=== PATIENT | female | born 1965 | race Caucasian/White ===

== ENCOUNTER → 2017-07-31 12:06 | Outpatient (CLI) | payer MEDICARE, SELFPAY ==
[2016-10-13 09:16] VITALS: BMI 35.9
[2016-10-13 10:53] VITALS: BP 107/60
== END ==
PROVIDERS: Visit Provider Nurse Practitioner Adult Health
DX: R82.99 Other abnormal findings in urine (principal)
CPT/HCPCS: 87077; 87086; 87088; 87186

== ENCOUNTER 2017-08-24 14:17 | Day surgery (SDC) | payer MEDICARE, SELFPAY ==
[2017-08-24] VITALS (7 sets, daily range): BP systolic 99–120; BP diastolic 66–74; PULSE 58–70; RESP 14–16; TEMP 36.4–37.1; O2SAT 96–98; BMI 35.7
[2017-08-24] MEDS: Cefazolin 2 GM in 0.9% Normal Saline 100 ML IV (16:31)
--- NOTE | 2017-08-24 16:33 | PCM.DC.URO ---
Discharge Diet: No Restrictions Discharge Activity: Return to Normal Activity, May Not Drive - for 2 days. Allergies/Adverse Reactions: Allergies OAT STRAW Allergy (Uncoded 08/17/17 08:54) Shortness of breath Medications to take at Discharge Albuterol IH (ProAir) [Proair Hfa (SP)Vent Pts] 1 - 2 puff INHALATION Q4H PRN PRN 10/06/16 Estradiol [Estrace] 2 mg PO QHS 10/06/16 Oxybutynin [Ditropan] 15 mg PO BID 10/06/16 Triamcinolone Acetonide [Nasacort Aq Nasal [place]] 1 spray NASAL PRN PRN 08/17/17 Ciprofloxacin [Cipro] 250 mg PO BID #14 tab 08/24/17 The following prescriptions were given: Ciprofloxacin [Cipro] 250 mg PO BID #14 tab Primary Care Physician: Pernell Zavala MD [Primary Care Provider] - Please Follow Up With: Ashish Rouse MD When: please call to make an appointment.- 1 month.
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
== END 2017-08-24 18:12 | disposition home or self-care (01) ==
LOC: SDC 14:18 → AC 14:21
PROVIDERS: Family Provider Family Medicine; PCP Family Medicine; Visit Provider Urology
PROC: 3E0K8GC Introduction of Other Therapeutic Substance into Genitourinary Tract, Via Natural or Artificial Opening Endoscopic (ICD-10-PCS; CPT 52287; principal; 2017-08-24 12:55)
DX: N39.41 Urge incontinence (principal); N32.81 Overactive bladder; R35.0 Frequency of micturition; Z87.820 Personal history of traumatic brain injury; Z79.899 Other long term (current) drug therapy
CPT/HCPCS: 52287; J3010; J7120; J0585; J2405; J3490

== ENCOUNTER → 2017-10-06 10:02 | Outpatient (CLI) | payer MEDICARE, SELFPAY ==
--- NOTE | 2017-10-06 10:15 | RAD_ITS ---
STUDY: X-RAY - LEFT ANKLE REASON FOR EXAM: Female, 51 years old. Pain TECHNIQUE: 3 view(s) of the ankle. COMPARISON: None. FINDINGS: Normal visualized distal tibia and fibula. Normal medial and lateral malleoli. Normal tibiotalar articulation and ankle mortise. Normal visualized talus. Small calcaneal spurs The visualized subtalar, talonavicular, calcaneocuboid and tarsal articulations are normal. The soft tissue structures are unremarkable. RAD/Ankle min 3 Views IMPRESSION: Calcaneal spurs, no demonstrated fracture or aggressive osseous lesion Electronically Signed: Zelalem Kingsley MD at 18:48 EDT , Service support ,
--- NOTE | 2017-10-06 10:15 | RAD_ITS ---
STUDY: X-RAY - LEFT FOOT CLINICAL: Female, 51 years old. Pain TECHNIQUE: 3 view(s) of the foot. COMPARISON: None. FINDINGS: Normal talus and tarsal bones. Calcaneal spurs Normal visualized subtalar, talonavicular, calcaneocuboid, tarsal and tarsometatarsal articulations. Normal metatarsi. Normal metatarsophalangeal joint of the great toe. Normal tibial and fibular sesamoid bones. Normal interphalangeal joint of the great toe. Normal phalanges of the great toe. Normal second through fifth metatarsophalangeal joints. Normal interphalangeal joints and phalanges of the lesser toes. The soft tissue structures are unremarkable. RAD/Foot min 3 Views IMPRESSION: Calcaneal spurs, otherwise unremarkable foot Electronically Signed: Zelalem Kingslye MD at 18:48 EDT , Service support ,
== END ==
PROVIDERS: Family Provider Family Medicine; PCP Family Medicine; Visit Provider Family Medicine
DX: S86.112A Strain of other muscle(s) and tendon(s) of posterior muscle group at lower leg level, left leg, initial encounter (principal); M21.40 Flat foot [pes planus] (acquired), unspecified foot; M77.32 Calcaneal spur, left foot
CPT/HCPCS: 73610; 73630

== ENCOUNTER 2017-11-15 19:58 | Emergency (ER) | payer MEDICARE, SELFPAY ==
[2017-11-15 19:59] VITALS: BP 134/70; PULSE 96; RESP 18; TEMP 36.8; O2SAT 98; BMI 34.5
--- NOTE | 2017-11-15 20:30 | RAD_ITS ---
STUDY: X-RAY - RIGHT FOOT CLINICAL: Female, 51 years old. Foot swelling and pain TECHNIQUE: 3 view(s) of the foot. COMPARISON: None. FINDINGS: Normal talus, calcaneus, and tarsal bones. Normal visualized subtalar, talonavicular, calcaneocuboid, tarsal and tarsometatarsal articulations. Normal metatarsi. Normal metatarsophalangeal joint of the great toe. Normal tibial and fibular sesamoid bones. Normal interphalangeal joint of the great toe. Normal phalanges of the great toe. Normal second through fifth metatarsophalangeal joints. Normal interphalangeal joints and phalanges of the lesser toes. The soft tissue structures are unremarkable. There is no demonstrated fracture. RAD/Foot min 3 Views IMPRESSION: Normal x-ray examination of the foot. Electronically Signed: Thomas Harry MD at 20:58 EDT , Service support ,
[2017-11-15] MEDS: HYDROcodone Bitartrate/Apap 5/325 Tablet PO (21:30)
--- NOTE | 2017-11-15 22:11 | ED.VISSUMM ---
- ER Visit Summary Date of Service: 11/15/17 Chief Complaint: Right foot pain History of Present Illness: The patient is a 51 F who presents with right foot pain that became worse today while standing and using a weed eater. Patient states the pain is worse over the medial aspect of the right foot. Patient admits to some swelling over this area. Patient denies any trauma or injury. Patient states her pain is constant aching and throbbing but sharp at times. Patient states her pain is worse with weightbearing. Patient denies any paresthesias or weakness. Patient states she does have a history of plantar fasciitis. Physical Examination: Vital signs are stable. Patient is afebrile. Patient is in no acute distress. Musculoskeletal exam reveals tenderness and mild edema over the medial and plantar aspect of the right foot. There is no bony crepitance or step-off noted. Range of motion was limited in all motions of the right foot secondary to pain. Sensation was intact to light touch in all digits. Capillary refill is less than 2 seconds in all digits. The remaining physical exam is within normal limits. Test Results: X-rays of the right foot were obtained. There is no acute fracture noted. Emergency Department Course and Treatment: Patient was given a dose of [place] here. Patient was instructed to ice and elevate the right foot and ankle. Patient was instructed to continue wearing her brace. Patient was given a prescription for Naprosyn. Patient was instructed to follow-up with her primary care physician in 7-10 days. Patient understood and was agreeable with the plan. All questions were answered. Disposition: Discharged home Impression: Right foot strain This note was generated with [employer] dictation software. It may contain incorrect words, spelling, and punctuation that were not noted in review of the chart prior to signing ED Disposition - Plan for ED Patient: Disposition: Home or Assisted Living Chief Complaint: Lower Extremity Injury Diagnosis: Strain of right foot Instructions: ED Sprain Foot Prescriptions: Naproxen [Naprosyn] 500 mg PO BID PRN PRN #20 tab PRN Reason: Pain Referrals: Pernell Zavala MD [Primary Care Provider] -
[2017-11-15 22:28] VITALS: BP 129/70; PULSE 74; RESP 16; O2SAT 98
--- NOTE | 2017-11-15 22:29 | ED.DCSUM_ITS ---
- ER Visit Summary Date of Service: 11/15/17 Chief Complaint: Right foot pain History of Present Illness: The patient is a 51 F who presents with right foot pain that became worse today while standing and using a weed eater. Patient states the pain is worse over the medial aspect of the right foot. Patient admits to some swelling over this area. Patient denies any trauma or injury. Patient states her pain is constant aching and throbbing but sharp at times. Patient states her pain is worse with weightbearing. Patient denies any paresthesias or weakness. Patient states she does have a history of plantar fasciitis. Physical Examination: Vital signs are stable. Patient is afebrile. Patient is in no acute distress. Musculoskeletal exam reveals tenderness and mild edema over the medial and plantar aspect of the right foot. There is no bony crepitance or step-off noted. Range of motion was limited in all motions of the right foot secondary to pain. Sensation was intact to light touch in all digits. Capillary refill is less than 2 seconds in all digits. The remaining physical exam is within normal limits. Test Results: X-rays of the right foot were obtained. There is no acute fracture noted. Emergency Department Course and Treatment: Patient was given a dose of [place] here. Patient was instructed to ice and elevate the right foot and ankle. Patient was instructed to continue wearing her brace. Patient was given a prescription for Naprosyn. Patient was instructed to follow-up with her primary care physician in 7-10 days. Patient understood and was agreeable with the plan. All questions were answered. Disposition: Discharged home Impression: Right foot strain This note was generated with [employer] dictation software. It may contain incorrect words, spelling, and punctuation that were not noted in review of the chart prior to signing ED Disposition - Plan for ED Patient: Disposition: Home or Assisted Living Chief Complaint: Lower Extremity Injury Diagnosis: Strain of right foot Instructions: ED Sprain Foot Prescriptions: Naproxen [Naprosyn] 500 mg PO BID PRN PRN #20 tab PRN Reason: Pain Referrals: Pernell Zavala MD [Primary Care Provider] -
== END 2017-11-15 22:29 | disposition home or self-care (01) ==
PROVIDERS: Emergency Provider Emergency Medicine; Family Provider Family Medicine; PCP Family Medicine
DX: S93.601A Unspecified sprain of right foot, initial encounter (principal); X58.XXXA Exposure to other specified factors, initial encounter; Y93.9 Activity, unspecified; Y92.9 Unspecified place or not applicable
CPT/HCPCS: 73630; 99282

== ENCOUNTER 2017-11-22 17:30 | Outpatient (RCR) | payer MEDICARE, SELFPAY ==
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
--- NOTE | 2017-11-22 18:13 | HP.PTDCSUM ---
HP - PT D/C Summary It has been my pleasure to treat RUBINA DIXON under orders from Chito Frederick, for the diagnosis of L ankle pain for a total of 8 visit(s). Discharge Date: Please see the following information for a summary of their discharge status. - Subjective Subjective: Pt reports she has made a very little improvement overall - Pain L ankle Pain Intensity (Out of 10): 5 - Overall Improvement % Improvement: 10 - Objective Objective/Function: L ankle pain still 5-6/10. L ankle DF ROM= 15 degrees. Pt is I with HEP. MMT: DF and Ever 5/5, PF and INV= 3/5 and very painful with testing. Rx goals not fully achieved - Goals Goal 1:: Decrease L ankle pain x 50% to aid with sleep Goal Progress: Not Progressing Goal 2:: Increase L ankle strength x 1 grade to aid with IADL's Goal Progress: Not Progressing Goal 3:: Increase L ankle DF ROM x 5-10 degrees to aid with decreasing pain Goal Progress: Goal Met Goal 4:: I with HEP Goal Progress: Goal Met - Plan Plan: Discontinue and RTD - D/C Information If there are questions or concerns regarding this patient's physical therapy, please feel free to call me at [phone]. Thank you for the referral of this patient. Sincerely, Harley Saldana, PT,
== END 2017-11-22 19:00 | disposition home or self-care (01) ==
LOC: PT 17:30
PROVIDERS: Family Provider Family Medicine; PCP Family Medicine; Visit Provider Family Medicine
DX: M25.572 Pain in left ankle and joints of left foot (principal)
CPT/HCPCS: 97035; 97110; 97161; 97530

== ENCOUNTER 2017-12-31 21:13 | Emergency (ER) | payer MEDICARE, SELFPAY ==
[2017-12-31 21:14] VITALS: BP 124/76; PULSE 86; RESP 18; TEMP 36.7; O2SAT 93; BMI 34.4
[2017-12-31 21:20] VITALS: O2SAT 93
--- NOTE | 2017-12-31 22:00 | RAD_ITS ---
STUDY: X-RAY CHEST REASON FOR EXAM: Female, 52 years old. Cough TECHNIQUE: Frontal and lateral views of the chest. COMPARISON: None. FINDINGS: The lungs are clear and expanded. There is no demonstrated pleural abnormality. Normal size heart. Normal mediastinum and darren. Normal visualized pulmonary arteries. Normal visualized aortic arch and descending thoracic aorta. There is demineralization of the osseous structures. There is degenerative osteoarthritis of the bilateral shoulders. There is no demonstrated abnormality of the visualized soft tissue structures of the upper abdomen. RAD/Chest PA and Lateral IMPRESSION: Degenerative changes, as described above. No demonstrated acute cardiopulmonary process. Electronically Signed: Baljeet Solorio MD at 22:23 EDT Tel , Service support ,
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
[2017-12-31 22:32] VITALS: PULSE 92; O2SAT 95
== END 2017-12-31 22:33 | disposition home or self-care (01) ==
PROVIDERS: Emergency Provider Emergency Medicine; Family Provider Family Medicine; PCP Family Medicine
DX: J04.0 Acute laryngitis (principal); E66.9 Obesity, unspecified; Z68.34 Body mass index [BMI] 34.0-34.9, adult; Z87.820 Personal history of traumatic brain injury; Z79.899 Other long term (current) drug therapy
CPT/HCPCS: 71046; 99282

== ENCOUNTER → 2018-04-02 16:43 | Outpatient (CLI) | payer MEDICARE, SELFPAY | PROVIDERS: Referring Provider Urology; Visit Provider Urology | DX: R82.998 Other abnormal findings in urine (principal) | CPT/HCPCS: 87086; 87088; 87186 ==

== ENCOUNTER 2018-05-03 06:45 | Day surgery (SDC) | payer MEDICARE, SELFPAY ==
[2018-05-03] VITALS (16 sets, daily range): BP systolic 85–118; BP diastolic 52–79; PULSE 48–74; RESP 14–18; TEMP 36.2–36.9; O2SAT 92–100; BMI 34.7
--- NOTE | 2018-05-03 07:42 | EKG12_ITS ---
Test Reason : PRE-OP Blood Pressure : / mmHG Vent. Rate : 068 BPM Atrial Rate : 068 BPM P-R Int : 164 ms QRS Dur : 096 ms QT Int : 410 ms P-R-T Axes : 052 097 019 degrees QTc Int : 435 ms Normal sinus rhythm Normal ECG When compared with ECG of 04-OCT-2016 00:18, No significant change was found Confirmed by NICHELLE HERRERA ([id number]), editorial writer REJI ROMERO ([id number]) on 05/06/2018 2:51:54 PM Referred By: Ashish Rouse Confirmed By:NICHELLE HERRERA
[2018-05-03] MEDS: Cefazolin 2 GM in 0.9% Normal Saline 100 ML IV (08:45)
[2018-05-03] MEDS: Lidocaine Jelly 2% 20 ML Syringe (URO-JET) 20 APPLIC (09:00)
--- NOTE | 2018-05-03 09:25 | DCINST_ITS ---
Discharge Diet: Light diet - advance as tolerated Discharge Activity: Return to Normal Activity Allergies/Adverse Reactions: Allergies OAT STRAW Allergy (Uncoded 05/03/18 07:14) Shortness of breath Medications to take at Discharge Estradiol [Estrace] 2 mg PO QHS 10/06/16 Oxybutynin [Ditropan] 15 mg PO BID 10/06/16 Albuterol Inhaler [Ventolin Hfa (SP)] 1 - 2 puff INHALATION Q4H PRN PRN 04/19/18 Cetirizine HCl [Zyrtec] 10 mg PO DAILY 04/19/18 Primary Care Physician: Pernell Zavala MD [Primary Care Provider] - Test Results: Test results from this visit will be discussed in further detail at your follow- up appointment, if applicable. Please Follow Up With: Ashish Rouse MD When: in 2 weeks, please call to make an appointment.
--- NOTE | 2018-05-03 09:26 | PCM.OPRPT ---
Report of Operation Date of Procedure: 05/03/18 Pre-Operative Diagnosis: Mixed incontinence with both stress incontinence and urge incontinence Post-Operative Diagnosis: Same Surgery/Procedure Performed:: Cystoscopy with injection of Botox into her bladder 150 units, and injection of Macroplastique into the urethra for stress incontinence. Description of Surgical Findings:: 52-year-old female taken back to the operating room at the smooth induction of anesthesia she was placed supine on the table and then in dorsal lithotomy position, the urethra and vaginal area were prepped and draped in usual sterile fashion, went into the bladder with a 21 [place] rigid cystourethroscope and the Botox was prepared I prepared 150 units of Botox in the back table I then injected in aliquots of half cc into the back of the bladder a total of about 20 sites in the back of the bladder, after injecting the the bladder with 150 units of Botox I then switched over the MAC plus needle prepared the Macroplastique solution for injection into the urethra the first injection was done at 6 o'clock position at the urethra infiltrated the urethra with the needle advanced the needle into the urethra make sure the beveled tip was down and then infiltrated the Macroplastique material into the urethra, I then pulled back out and then made a second injection at the 3 o'clock position and another injection in the 9 o'clock position after the injection and Macroplastique the urethra was accomplished and I drain the bladder patient anesthetic was reversed taken back to PACU in good condition. Type of Anesthesia:: General Drains: none - Admit VTE Documentation VTE Present on Admission: No VTE Mechan Device Prophylaxis: SCD's
--- NOTE | 2018-05-03 09:38 | EKG12_ITS ---
Test Reason : POST-OP Blood Pressure : / mmHG Vent. Rate : 047 BPM Atrial Rate : 047 BPM P-R Int : 184 ms QRS Dur : 084 ms QT Int : 462 ms P-R-T Axes : 049 090 047 degrees QTc Int : 408 ms Sinus bradycardia Nonspecific ST abnormality Abnormal ECG When compared with ECG of 03-MAY-2018 07:50, MANUAL COMPARISON REQUIRED, DATA IS UNCONFIRMED Confirmed by AMINTA HACKETT, REINA ([id number]), script editor REJI ROMERO ([id number]) on 05/08/2018 11:43:41 AM Referred By: Ashish Rouse Confirmed By:REINA LEMOS MD
== END 2018-05-03 15:51 | disposition home or self-care (01) ==
LOC: SDC 06:47 → AC 07:39
PROVIDERS: Anesthesiology; Family Provider Family Medicine; PCP Family Medicine; Referring Provider Urology; Visit Provider Urology
PROC: 3E0K8GC Introduction of Other Therapeutic Substance into Genitourinary Tract, Via Natural or Artificial Opening Endoscopic (ICD-10-PCS; CPT 52287; principal; 2018-05-03 08:35)
DX: N39.46 Mixed incontinence (principal); N32.81 Overactive bladder; N30.01 Acute cystitis with hematuria; Z87.820 Personal history of traumatic brain injury
CPT/HCPCS: 00910; 51715; 36415; 84484; 93005; J7120; J0585; J2405; J3490

== ENCOUNTER → 2018-05-17 07:52 | Outpatient (CLI) | payer MEDICARE, SELFPAY ==
[2018-05-07 10:31] VITALS: BMI 33.0
--- NOTE | 2018-05-17 07:54 | ECHOD_ITS ---
Reason For Study: ABN EKG Procedure This was a 2D Doppler, Color Flow transthoracic echocardiogram. Exam performed in department. Left Ventricle Normal size and thickness. The estimated ejection fraction is 65 %. Normal diastology for age. No regional wall motion abnormalities noted. Right Ventricle Normal size and thickness. Normal systolic function. Atria Normal left atrium. Normal right atrium. Normal atrial septum. Mitral Valve The mitral valve is structurally normal. No prolapse or stenosis seen. Tricuspid Valve Normal tricuspid valve. Trivial tricuspid valve insufficiency. Right ventricular systolic pressure estimated to be 30 mmHg. Aortic Valve Trisinus/trileaflet aortic valve. Pulmonic Valve Normal pulmonic valve. Great Vessels Normal aortic root. Normal arch. Normal inferior vena cava. Inferior vena cava collapse with sniff. Pericardium/Pleural No pericardial effusion. MMode/2D Measurements & Calculations LVIDd: 4.3 cm IVSd: 0.93 cm Ao root diam: 2.9 cm LVIDs: 2.7 cm LVPWd: 0.91 cm RVDd: 3.8 cm FS: 36.5 % LAV(MOD-bp): 41.8 ml LA A4 area: 16.8 cm2 LA dimension(2D): 3.9 cm LAV(MOD-bp) Indexed: 21.6 ml/m2 LAV(MOD-sp2): 40.4 ml LAV(MOD-sp4): 44.0 ml RA A4 area: 15.0 cm2 Time Measurements MV dec time: 0.18 sec Doppler Measurements & Calculations MV E max nikita: 80.7 cm/sec Lat Peak E' Nikita: 9.1 cm/sec Med Peak E' Nikita: 6.8 cm/sec MV A max nikita: 45.9 cm/sec E/E' lat: 8.9 E/E' med: 11.9 MV E/A: 1.8 Ao V2 max: 119.1 cm/sec LV V1 max: 97.9 cm/sec TR max nikita: 242.1 cm/sec Ao max P.7 mmHg LV V1 max P.8 mmHg TR max P.5 mmHg Interpretation Summary The estimated ejection fraction is 65 %. Normal diastology for age. Trivial tricuspid valve insufficiency. Right ventricular systolic pressure estimated to be 30 mmHg. Compared to echo report dated 05/12/2009, no appreciable changes noted. Ordering Physician: Jasper Torres Referring Physician: DARRICK HUNTER Performed By: Karishma Cullen, DIVINE, RVT
== END ==
PROVIDERS: Family Provider Family Medicine; PCP Family Medicine; Referring Provider Internal Medicine Cardiovascular Disease; Visit Provider Internal Medicine Cardiovascular Disease
DX: R94.31 Abnormal electrocardiogram [ECG] [EKG] (principal)
CPT/HCPCS: 93306

== ENCOUNTER → 2018-05-28 08:27 | Outpatient (CLI) | payer MEDICARE, SELFPAY ==
--- NOTE | 2018-05-28 08:28 | BI_ITS ---
MAMMOGRAPHY - BILATERAL SCREENING REASON FOR EXAM: Female, 52 years old. Routine annual screening examination. PERTINENT HISTORY: Aunt with breast cancer. TECHNIQUE: Digital bilateral breast yamel (3D mammographic acquisition) in the CC and MLO projections. 2-D mediolateral oblique (MLO) and craniocaudad (CC) views of both breasts were obtained. CAD: Full Field Digital Mammography with Computer Added Detection was performed. COMPARISON: Comparison is made with prior study dated January 30, 2017 and January 27, 2016. FINDINGS: Breast Composition: The breasts are extremely dense, which lowers the sensitivity of mammography. There are no dominant masses or suspicious calcifications. No other significant abnormalities are identified. There has been no significant change since the prior study. BI/SCREENING MAMM (CAD), BILAT IMPRESSION: Stable bilateral screening mammogram. Yearly follow-up mammogram recommended. (A) ASSESSMENT CATEGORY: BIRADS Category 1: Negative. A letter regarding these results will be sent to the patient by the facility within 30 days. Approximately 10% of breast cancers are not detected by mammography. A normal mammogram should not delay biopsy of a clinically suspicious abnormality. [id number] Electronically Signed: Kirt López MD at 9:34 EST Tel [phone], Service support ,
== END ==
PROVIDERS: Family Provider Family Medicine; PCP Family Medicine; Visit Provider Family Medicine
DX: Z12.31 Encounter for screening mammogram for malignant neoplasm of breast (principal)
CPT/HCPCS: 77063; 77067

== ENCOUNTER → 2019-03-14 09:08 | Outpatient (CLI) | payer MEDICARE, SELFPAY ==
[2018-12-09 13:11] VITALS: BMI 34.5
[2019-03-14 11:05] LABS: Vitamin D,25 Hydroxy 24.2 ng/mL (29.95-100.01)
[2019-03-14 11:10] LABS: Anion Gap 6 (5-15); BUN 19 mg/dL (7-18); BUN/Creat Ratio 24.8 RATIO (10-20); Calcium,Total 8.8 mg/dL (8.5-10.1); Chloride 108 mmol/L (98-107); Cholesterol 207 mg/dL (200); Creatinine, Serum 0.76 mg/dL (0.55-1.02); EST Glomerular Filtration Rate 84 mL/min (>60); Est Glom Filt Rate - Afr Amer 102 mL/min (>60); Glucose 91 mg/dL (74-106); High Density Lipoprotein 62 mg/dL; Potassium 3.9 mmol/L (3.5-5.1); Sodium Level 141 mmol/L (136-145); Triglycerides 111 mg/dL; Very Low Density Lipoprotein 22 mg/dL (5-40)
== END ==
PROVIDERS: Family Provider Family Medicine; PCP Family Medicine; Referring Provider Family Medicine; Visit Provider Family Medicine
DX: Z00.00 Encounter for general adult medical examination without abnormal findings (principal); E66.9 Obesity, unspecified
CPT/HCPCS: 36415; 80048; 80061; 82306

== ENCOUNTER → 2019-05-30 07:57 | Outpatient (CLI) | payer MEDICARE, SELFPAY ==
[2018-12-09 13:11] VITALS: BMI 34.5
--- NOTE | 2019-05-30 08:05 | BI_ITS ---
MAMMOGRAPHY - BILATERAL SCREENING REASON FOR EXAM: Female, 53 years old. Routine annual screening examination. PERTINENT HISTORY: Aunts with breast cancer. TECHNIQUE: Digital bilateral breast flory (3D mammographic acquisition) in the CC and MLO projections. 2-D mediolateral oblique (MLO) and craniocaudad (CC) views of both breasts were obtained. CAD: Full Field Digital Mammography with Computer Added Detection was performed. COMPARISON: Comparison is made with prior examination dated May 28, 2018 and January 30, 2017. FINDINGS: Breast Composition: The breasts are extremely dense, which lowers the sensitivity of mammography. There are no dominant masses or suspicious calcifications. No other significant abnormalities are identified. There has been no significant change since the prior study. BI/SCREEN MAMM (CAD) W/FLORY BILAT IMPRESSION: Stable bilateral screening mammogram. Yearly follow-up mammogram recommended. (A) ASSESSMENT CATEGORY: BIRADS Category 1: Negative. A letter regarding these results will be sent to the patient by the facility within 30 days. Approximately 10% of breast cancers are not detected by mammography. A normal mammogram should not delay biopsy of a clinically suspicious abnormality. [id number] Electronically Signed: Kirt López, at 9:20 EST , Service support ,
== END ==
PROVIDERS: Family Provider Family Medicine; PCP Family Medicine; Referring Provider Family Medicine; Visit Provider Family Medicine
DX: Z12.31 Encounter for screening mammogram for malignant neoplasm of breast (principal)
CPT/HCPCS: 77063; 77067

== ENCOUNTER → 2019-07-10 17:38 | Outpatient (CLI) | payer MEDICARE, SELFPAY ==
[2019-06-12 09:57] VITALS: BMI 36.8
== END ==
PROVIDERS: PCP Family Medicine; Referring Provider Family Medicine; Visit Provider Family Medicine
DX: J02.9 Acute pharyngitis, unspecified (principal)
CPT/HCPCS: 87070

== ENCOUNTER → 2019-07-24 09:26 | Outpatient (CLI) | payer MEDICAID, MEDICARE, SELFPAY ==
[2019-06-12 09:57] VITALS: BMI 36.8
--- NOTE | 2019-07-24 09:32 | STE_ITS ---
Reason For Study: CHEST PAIN Stress Results Protocol: Stress Echocardiogram Maximum Predicted HR: 168 bpm Target HR: 143 bpm % Maximum Predicted HR: 89 % DurationHeart Rate Stage (mm:ss) (bpm) BP Comment BASELINE 72 129/72 MODBRUCE- STAGE 1 3:00 109 134/80NO SX MODBRUCE- STAGE 2 3:00 113 140/84NO SX MODBRUCE- STAGE 3 3:00 121 144/82NO SX MODBRUCE- STAGE 4 3:00 150 148/84NO SX, LEG DISCOMFORT RECOVERY 88 124/84NO SX Stress Duration: 12:00 mm:ss Maximum Stress HR: 150 bpm Baseline Echocardiogram Findings The estimated ejection fraction is 65 %. Stress Echo Wall motion Data Resting WM Intermediate WM Stress WM Resting Wall Motion Wall Motion Stress No regional wall motion No regional wall motion abnormalities noted. abnormalities noted. EKG Data The baseline ECG displays normal sinus rhythm. During stress, there were no ST or T wave changes noted to suggest ischemia. No clinical angina was noted. No arrhythmias noted. Interpretation Summary The estimated ejection fraction is 65 %. Normal, adequate, modified Pablo treadmill echocardiogram. Negative for ischemia by EKG and echocardiographic criteria. No anginal symptoms noted. No arrhythmias noted. Appropriate blood pressure response to exercise. Average exercise capacity for age. Test terminated due to the attainment of target heart rate and leg discomfort. Patient tolerated procedure well. No complications. Ordering Physician: Jasper Torres MD Referring Physician: Jasper Torres Performed By: Ellie Buenrostro RDCS
== END ==
PROVIDERS: Family Provider Family Medicine; PCP Family Medicine; Referring Provider Internal Medicine Cardiovascular Disease; Visit Provider Internal Medicine Cardiovascular Disease
DX: R94.31 Abnormal electrocardiogram [ECG] [EKG] (principal); R07.9 Chest pain, unspecified
CPT/HCPCS: 93017; 93350

== ENCOUNTER → 2020-04-02 11:49 | Outpatient (CLI) | payer MEDICARE, MEDICAID, SELFPAY ==
[2020-01-22 10:02] VITALS: BMI 35.6
--- NOTE | 2020-04-02 11:53 | RAD_ITS ---
STUDY: X-RAY CHEST REASON FOR EXAM: Female, 54 years old. Fever. Cough. TECHNIQUE: Frontal and lateral views of the chest COMPARISON: 12/31/17 FINDINGS: The lungs are clear. There are no pleural effusions. There is no pneumothorax. The heart is normal in size. The visualized osseous structures are within normal limits. RAD/Chest PA and Lateral IMPRESSION: No acute thoracic pathology. Electronically Signed: Patel Alvarez, at 14:15 EDT Tel , Service support ,
== END ==
PROVIDERS: PCP Family Medicine; Referring Provider Family Medicine; Visit Provider Family Medicine
DX: J20.9 Acute bronchitis, unspecified (principal)
CPT/HCPCS: 71046; 87635; U0003

== ENCOUNTER → 2020-05-31 09:41 | Outpatient (CLI) | payer MEDICARE, MEDICAID, SELFPAY ==
[2020-01-22 10:02] VITALS: BMI 35.6
--- NOTE | 2020-05-31 09:45 | BI_ITS ---
MAMMOGRAPHY - BILATERAL SCREENING REASON FOR EXAM: Female, 54 years old. Routine annual screening examination. PERTINENT HISTORY: Aunts with breast cancer. TECHNIQUE: Digital bilateral breast flory (3D mammographic acquisition) in the CC and MLO projections. 2-D mediolateral oblique (MLO) and craniocaudad (CC) views of both breasts were obtained. CAD: Full Field Digital Mammography with Computer Added Detection was performed. COMPARISON: Comparison is made with prior study dated 05/30/2019 and 05/28/2018. FINDINGS: Breast Composition: The breasts are extremely dense, which lowers the sensitivity of mammography. There are no dominant masses or suspicious calcifications. No other significant abnormalities are identified. There has been no significant change since the prior study. BI/SCREEN MAMM (CAD) W/FLORY BILAT IMPRESSION: Stable bilateral screening mammogram. Yearly follow-up mammogram recommended. (A) ASSESSMENT CATEGORY: BIRADS Category 1: Negative. A letter regarding these results will be sent to the patient by the facility within 30 days. Approximately 10% of breast cancers are not detected by mammography. A normal mammogram should not delay biopsy of a clinically suspicious abnormality. [id number] Electronically Signed: Kirt López, at 10:27 EST , Service support ,
== END ==
PROVIDERS: PCP Family Medicine; Referring Provider Obstetrics & Gynecology; Visit Provider Obstetrics & Gynecology
DX: Z12.31 Encounter for screening mammogram for malignant neoplasm of breast (principal)
CPT/HCPCS: 77063; 77067

== ENCOUNTER → 2020-08-18 08:59 | Outpatient (CLI) | payer MEDICARE, SELFPAY ==
[2020-07-29 09:27] VITALS: BMI 35.9
[2020-08-18 10:47] LABS: Absolute Lymphocyte Count 1.68 X10^3/uL (0.83-4.51); Absolute Neutrophil Count 3.1 X10^3/uL (2.0-7.7); Basophil# 0.02 X10^3/uL; Basophil% 0.4 % (0-1); Eosinophil# 0.41 X10^3/uL; Eosinophils% 7.2 % (0-5); Hematocrit 44.6 % (37-47); Hemoglobin 14.5 g/dL (12.0-15.0); Lymphocyte # 1.68 X10^3/ul (4.0); Lymphocyte % 29.5 % (19-41); Mean Corp Hgb Conc 32.5 g/dL (32-36); Mean Corpuscular Hgb 28.7 pg (27.0-32.0); Mean Corpuscular Volume 88.1 fL (81-99); Mean Platelet Vol. 9.4 fl (6.2-12.0); Monocyte# 0.43 X10^3/uL; Monocyte% 7.6 % (0-10); NRBC Flagged by Analyzer 0 % (0-5); Neutrophil # 3.14 X10^3/uL (2.7-7.7); Neutrophil % 55.1 % (47-70); Platelet Count 253 K/mm3 (150-450); RBC Distribution Width CV 13.1 % (11.6-14.6); RBC Distribution Width SD 41.9 fl (35.1-43.9); Red Blood Count 5.06 M/mm3 (4.2-5.4); White Blood Count 5.7 K/mm3 (4.4-11.0)
[2020-08-18 11:18] LABS: AST(SGOT) 14 U/L (15-37); Alanine Aminotransfer ALT/SGPT 23 U/L (13-56); Albumin, Serum 3.8 g/dL (3.2-5.0); Alkaline Phosphatase 111 U/L (45-117); Anion Gap 4 (5-15); BUN 25 mg/dL (7-18); BUN/Creat Ratio 30.9 RATIO (10-20); Bilirubin, Direct 0.16 mg/dL (0.00-0.30); Calcium,Total 9.3 mg/dL (8.5-10.1); Chloride 105 mmol/L (98-107); Cholesterol 204 mg/dL (200); Creatinine, Serum 0.81 mg/dL (0.55-1.02); EST Glomerular Filtration Rate 79 mL/min (>60); Est Glom Filt Rate - Afr Amer 95 mL/min (>60); Globulin 4.1 g/dL (2.2-4.2); Glucose 93 mg/dL (74-106); High Density Lipoprotein 59 mg/dL; Potassium 4.2 mmol/L (3.5-5.1); Protein, Total 7.9 g/dL (6.4-8.2); Sodium Level 138 mmol/L (136-145); T4 Free Direct 1.23 ng/dL (0.76-1.46); Thyroid Stim Hormone (TSH) 1.84 uIU/mL (0.358-3.74); Triglycerides 151 mg/dL; Very Low Density Lipoprotein 30 mg/dL (5-40)
== END ==
PROVIDERS: PCP Family Medicine; Referring Provider Nurse Practitioner Family; Visit Provider Nurse Practitioner Family
DX: E78.5 Hyperlipidemia, unspecified (principal); R94.31 Abnormal electrocardiogram [ECG] [EKG]; Z13.6 Encounter for screening for cardiovascular disorders
CPT/HCPCS: 36415; 80048; 80061; 80076; 84439; 84443; 85025

== ENCOUNTER 2021-08-10 07:07 | Outpatient (CLI) | payer MEDICARE, SELFPAY ==
--- NOTE | 2021-08-10 07:10 | BI_ITS ---
MAMMOGRAPHY - BILATERAL SCREENING REASON FOR EXAM: Female, 55 years old. Routine annual screening examination. PERTINENT HISTORY: Aunts with breast cancer. TECHNIQUE: Digital bilateral breast flory (3D mammographic acquisition) in the CC and MLO projections. 2-D mediolateral oblique (MLO) and craniocaudad (CC) views of both breasts were obtained. CAD: Full Field Digital Mammography with Computer Added Detection was performed. COMPARISON: Comparison is made with prior study dated 05/31/2020 and 05/30/2019. FINDINGS: Breast Composition: The breasts are extremely dense, which lowers the sensitivity of mammography. There are no dominant masses or suspicious calcifications. No other significant abnormalities are identified. There has been no significant change since the prior study. BI/SCRN MAMM (CAD)W/FLORY BILAT IMPRESSION: Stable bilateral screening mammogram. Yearly follow-up mammogram recommended. (A) ASSESSMENT CATEGORY: BIRADS Category 1: Negative. A letter regarding these results will be sent to the patient by the facility within 30 days. Approximately 10% of breast cancers are not detected by mammography. A normal mammogram should not delay biopsy of a clinically suspicious abnormality. [id number] Electronically Signed: Kirt López MD at 8:54 EST ,
== END 2021-08-10 23:59 | disposition home or self-care (01) ==
PROVIDERS: PCP Family Medicine; Referring Provider Obstetrics & Gynecology; Visit Provider Obstetrics & Gynecology
DX: Z12.31 Encounter for screening mammogram for malignant neoplasm of breast (principal)
CPT/HCPCS: 77063; 77067

== ENCOUNTER 2021-12-22 09:51 | Day surgery (SDC) | payer MEDICARE, MEDICAID, SELFPAY ==
--- NOTE | 2021-12-21 08:52 | EKG12_ITS ---
Test Reason : PREOP Blood Pressure : / mmHG Vent. Rate : 052 BPM Atrial Rate : 052 BPM P-R Int : 160 ms QRS Dur : 098 ms QT Int : 422 ms P-R-T Axes : 062 061 022 degrees QTc Int : 392 ms Sinus bradycardia Otherwise normal ECG Confirmed by ARTURO HACKETT, DARRICK ([id number]), purchase request editor SUZIE MCNAMARA ([id number]) on 12/22/2021 10:50:02 AM Referred By: JOSE Confirmed By:DARRICK MORRIS MD
--- NOTE | 2021-12-21 08:52 | RAD_ITS ---
EXAM: XR CHEST, 2 VIEWS CLINICAL INDICATION: preop TECHNIQUE: Frontal and lateral views of the chest. This report was created using [employer] report generation technology. COMPARISON: 04/02/2020 FINDINGS: LUNGS AND PLEURAL SPACES: Unremarkable. No consolidation or edema. No pneumothorax. No effusion. HEART: Unremarkable. Cardiac silhouette not enlarged. MEDIASTINUM: Central airways and mediastinal contour are unremarkable. BONES/JOINTS: Unremarkable. SOFT TISSUES: Unremarkable. RAD/Chest PA and Lateral IMPRESSION: No radiographic evidence of acute cardiopulmonary disease. Electronically Signed: Christian Arndt MD at 22:04 EDT ,
[2021-12-21 09:36] LABS: Hematocrit 39.5 % (37-47); Hemoglobin 12.9 g/dL (12.0-15.0); Mean Corp Hgb Conc 32.7 g/dL (32-36); Mean Corpuscular Hgb 28.3 pg (27.0-32.0); Mean Corpuscular Volume 86.6 fL (81-99); Mean Platelet Vol. 8.8 fl (6.2-12.0); Platelet Count 252 K/mm3 (150-450); RBC Distribution Width CV 13.7 % (11.6-14.6); RBC Distribution Width SD 43.4 fl (35.1-43.9); Red Blood Count 4.56 M/mm3 (4.2-5.4); White Blood Count 9.4 K/mm3 (4.4-11.0)
[2021-12-21 10:06] LABS: Anion Gap 5 (5-15); BUN 24 mg/dL (7-18); BUN/Creat Ratio 30.7 RATIO (10-20); Calcium,Total 8.7 mg/dL (8.5-10.1); Chloride 105 mmol/L (98-107); Creatinine, Serum 0.78 mg/dL (0.55-1.02); EST Glomerular Filtration Rate 81 mL/min (>60); Est Glom Filt Rate - Afr Amer 98 mL/min (>60); Glucose 113 mg/dL (74-106); Potassium 3.4 mmol/L (3.5-5.1); Sodium Level 141 mmol/L (136-145)
[2021-12-22] MEDS: Lactated Ringers 1,000 ML 15 ML IV (10:10)
[2021-12-22 10:16] VITALS: BP 142/76; PULSE 70; RESP 18; TEMP 36.2; O2SAT 95; BMI 37.0
--- NOTE | 2021-12-22 10:16 | PCM.HP.STD ---
HPI - General HPI Narrative RUBINA DIXON, is a 56 F who presents for a bladder biopsy and fulguration of a small lesion found on cystoscopy in the office. Informed consent has been obtained. Her preoperative urine culture was negative. [facility] Medical History (Updated 12/22/21 @ 10:[address] Yin Zarate MD) Abnormal EKG Bladder disease Bladder neoplasm of uncertain malignant potential Cardiology follow-up encounter History of closed head injury (~1989) History of Clostridium difficile infection History of edema History of EMG (2012) History of irregular heartbeat History of stress test Non-smoker Plantar fascia syndrome Wears glasses Home Medications oxybutynin chloride 15 mg tablet,extended release 24 hr 15 mg PO DAILY bladder 05/03/18 [History Last Taken Unknown] Lactobacillus 40-Bifidobact 3-S.thermophilus 100 billion cell capsule (Probiotic) 1 cap PO DAILY 12/19/21 [History Last Taken Unknown] ascorbic acid (vitamin C) 500 mg tablet (Vitamin C) 500 mg PO DAILY 12/19/21 [History Last Taken Unknown] cephalexin 250 mg capsule 250 mg PO QHS 12/19/21 [History Last Taken Unknown] d-mannose 500 mg capsule 500 mg PO DAILY bladder health 12/19/21 [History Last Taken Unknown] Allergy/AdvReac Type Severity Reaction Status Date / Time OAT STRAW Allergy Shortness Uncoded 12/22/21 10:15 of breath Family History Aunt Breast cancer Grandmother Colon cancer Father COPD (chronic obstructive pulmonary disease) CAD (coronary artery disease) Mother Diabetes Surgical History History of colonoscopy History of cystoscopy (2017) History of exploratory laparotomy History of tracheostomy History of vaginal hysterectomy (2012) Social History Smoking Status: Never smoker ROS Constitutional Constitutional: Reports systems reviewed and no addt'l complaints, except as documented Eyes Eyes: Reports systems reviewed and no addt'l complaints, except as documented ENT HEENT: Reports systems reviewed and no addt'l complaints, except as documented Cardiovascular Cardiovascular: Denies abdominal pain, chest pain, dyspnea, nausea or vomiting Respiratory/Chest Respiratory/Chest: Reports systems reviewed and no addt'l complaints, except as documented Gastrointestinal Gastrointestinal: Denies abdominal pain, nausea or vomiting Genitourinary Genitourinary: Reports nocturia, urinary frequency, urinary incontinence and urinary urgency Musculoskeletal Musculoskeletal: Reports systems reviewed and no addt'l complaints, except as documented Integumentary Integumentary: Reports systems reviewed and no addt'l complaints, except as documented Psychiatric Psychiatric: Reports systems reviewed and no addt'l complaints, except as documented Endocrine Endocrinology: Reports systems reviewed and no addt'l complaints, except as documented Hematologic/Lymphatic Hematologic/Lymphatic: Reports systems reviewed and no addt'l complaints, except as documented Allergic/Immunologic Allergic/Immunologic: Reports systems reviewed and no addt'l complaints, except as documented Physical Exam Const alert, oriented x3 and no apparent distress General Appearance: cooperative and comfortable HEENT normocephalic, head/scalp atraumatic, hearing grossly normal bilaterally, external ears normal and external nose normal Eyes General Eye: normal appearance of both eyes Neck supple General: trachea midline Lymph Lymphatic: no lymphedema noted Chest inspection of chest normal Resp normal respiratory effort, normal air movement, no retractions and no use of accessory muscles Effort and Inspection: able to speak in complete sentences Cardio regular rate and regular rhythm GI soft to palpation, non-tender and non-distended no CVA tenderness Back/Spine no CVA tenderness Extremity normal to inspection Skin no rashes or lesions noted General Skin Exam: no breakdown Neuro oriented x3 and CN's II-XII intact bilaterally Psych mental status grossly normal, thought process normal, cooperative and affect normal Results Lab / Micro Data Result Diagrams: 12/21/21 09:25 12/21/21 09:25 Micro: Microbiology 12/21/21 09:10 Interface Orders SARS-CoV-2 Antigen (Rapid) - Final Radiology Impression Chest X-Ray 12/21/21 08:52 IMPRESSION: No radiographic evidence of acute cardiopulmonary disease. Electronically Signed: Christian Arndt MD at 22:04 EDT , Assessment & Plan Assessment/Plan (1) Urge incontinence: (2) Urinary frequency: (3) Bladder neoplasm of uncertain malignant potential: PLAN: Plan proceed with cystoscopy, bladder biopsy and fulguration as planned.
--- NOTE | 2021-12-22 10:24 | DCINST_ITS ---
Discharge Instructions Diet Discharge Diet: No restrictions Activity Discharge Activity: Return to Normal Activity Dressing / Incision Call your doctor if you observe: Fever of 101 or Higher, Inability to urinate and Inability to have a bowel movement Follow Up Care Please Follow Up With: Yin Zarate MD When: in one week in the office, call for appt Test Results: Test results from this visit will be discussed in further detail at your follow- up appointment, if applicable. Discharge Plan Admission Attending Provider: Yin Zarate Primary Care Provider: Pernell Zavala Discharge Orders/Prescriptions Prescriptions: New oxycodone-acetaminophen [Percocet] 5-325 mg tablet 1 tab PO Q8H PRN (Reason: pain) 3 Days Qty: 10 0RF phenazopyridine [Pyridium] 200 mg tablet 200 mg PO TID PRN PRN (Reason: Bladder Spasms) 7 Days Qty: 30 0RF Continued oxybutynin chloride 15 mg tablet extended release 24hr 15 mg PO DAILY cephalexin 250 mg capsule 250 mg PO QHS Label Comments: TAKE 1 CAPSULE BY MOUTH DAILY AT BEDTIME ascorbic acid (vitamin C) [Vitamin C] 500 mg Tablet 500 mg PO DAILY Probiotic 100 billion cell Capsule 1 cap PO DAILY d-mannose 500 mg Capsule 500 mg PO DAILY Referrals / Follow Up: Pernell Zavala MD [Primary Care Provider] - Disposition Disposition (needs filled in before D/C Order can be placed): Home, Self Care
--- NOTE | 2021-12-22 10:30 | PCM.OPRPT ---
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 On her cystoscopy a small erythematous lesion was identified. After discussing the risk benefits and alternatives, informed consent was obtained and she agreed to proceed with biopsy and fulguration under anesthesia. The patient was taken to the operating room and placed on the operating room table. Anesthesia monitored the head, neck, airway, IV access and vital signs throughout the case. Once anesthesia was appropriate ministered the patient was placed into dorsolithotomy position was prepped and draped in usual sterile fashion. The cystoscope was inserted through the urethra under direct visualization into the urinary bladder. Once again the ureteral orifices were identified in the area of the trigone. The bladder mucosa was diffusely erythematous with a few areas in the posterior bladder wall more so than the surrounding tissue. Biopsy forceps were used to sample these areas of mucosa and fulguration was then performed for tissue treatment and hemostasis. The patient's bladder was then emptied and the case was terminated. She was awakened and taken to the recovery room in good condition. There were no complications during this procedure. Grafts/Implants Used: None Complications None Admit VTE Documentation VTE Present on Admission: Yes VTE Mechan Device Prophylaxis: SCD's VTE Pharm Prophylaxis ordered?: No Reason prophylaxis not ordered:: Treatment Not Indicated
[2021-12-22] MEDS: Cefazolin 2 GM in 0.9% Normal Saline 100 ML IV (10:33)
[2021-12-22 11:00] VITALS: BP 142/76; BP 98/61; PULSE 65; RESP 16; TEMP 36.1; O2SAT 92
[2021-12-22 11:05] VITALS: BP 109/63; BP 142/76; PULSE 60; RESP 16; O2SAT 93
[2021-12-22 11:10] VITALS: BP 142/76; BP 99/72; PULSE 60; RESP 16; O2SAT 94
[2021-12-22 11:15] VITALS: BP 114/63; BP 142/76; PULSE 61; RESP 16; TEMP 36.5; O2SAT 92
--- NOTE | 2021-12-22 11:25 | BLA_PTH ---
PATIENT: RUBINA DIXON LOC: [facility] U#:[id number] AGE/SX: 56/F ROOM: RE12/22/[address]: Dr. Yin Zarate MD : [id number] BED: DIS: 12/22/2021 SPEC #: [id number] RECD: 12/22/21 12:24 STATUS: ANGE REJimenez #: [id number] MAR: 12/22/21 11:[address]: Yin Zarate DEPT: SURGICAL PATHOLOGY RECD BY: Inessa De La Fuente ENTERED: 12/22/21 13:28 SP TYPE: BLADDER BX OTHR DR: Dr. Pernell Zavala MD Tissues: Urinary bladder, NOS Procedures: Surgery Specimen Level IV HEADER OPERATION: Cysto, biopsy, fulguration, bladder tumor PRE-OP DIAGNOSIS: Urge incontinence, urinary frequency, bladder neoplasm TISSUE SUBMITTED: Bladder biopsies MICROSCOPIC DIAGNOSIS Bladder, biopsy: Moderate chronic follicular cystitis. Negative for malignancy. See comment. JANETT:thomas 12/23/2021 COMMENT Clinical correlation and appropriate follow up are necessary. MICROSCOPIC DESCRIPTION Slides are reviewed. GROSS DESCRIPTION Received in fixative is one container labeled with the patient's name and designated bladder biopsy. The specimen consists of three irregular fragments of zheng soft tissue that in aggregate measure 0.4 x 0.1 x 0.1 cm. The specimen is totally submitted in one cassette. / JANETT:thomas 12/22/2021 TC:3 CPT: 68089
[2021-12-22 12:07] VITALS: BP 126/80; BP 142/76; PULSE 67; RESP 16; TEMP 36.8; O2SAT 100
== END 2021-12-22 12:10 | disposition home or self-care (01) ==
LOC: SDC 09:53 → AC 09:56
PROVIDERS: Anesthesiology; PCP Family Medicine; Visit Provider Urology
PROC: 0TBB8ZX Excision of Bladder, Via Natural or Artificial Opening Endoscopic, Diagnostic (ICD-10-PCS; CPT 52204; principal; 2021-12-22 11:15)
DX: N30.30 Trigonitis without hematuria (principal); Z20.822 Contact with and (suspected) exposure to COVID-19; N39.41 Urge incontinence; R35.0 Frequency of micturition; Z79.899 Other long term (current) drug therapy
CPT/HCPCS: 52204; 00910; 36415; 71046; 80048; 85027; 87426; 88305; 93005; C9803; J7120; J2405

== ENCOUNTER → 2022-04-26 | Outpatient (CLI) | payer MEDICARE, MEDICAID, SELFPAY ==
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
== END | disposition home or self-care (01) ==
PROVIDERS: PCP Family Medicine; Referring Provider Family Medicine; Visit Provider Family Medicine
DX: R13.10 Dysphagia, unspecified (principal)
CPT/HCPCS: 74230; 92611

== ENCOUNTER → 2022-08-03 | Outpatient (CLI) | payer MEDICARE, MEDICAID, SELFPAY ==
[2022-08-03 15:27] LABS: Vitamin D,25 Hydroxy 24.1 ng/mL
[2022-08-03 15:30] LABS: Anion Gap 8 (5-15); BUN 20 mg/dL (7-18); BUN/Creat Ratio 24.4 RATIO (10-20); Calcium,Total 9.1 mg/dL (8.5-10.1); Chloride 103 mmol/L (98-107); Cholesterol 216 mg/dL (200); Creatinine, Serum 0.82 mg/dL (0.55-1.02); EST Glomerular Filtration Rate 77 mL/min (>60); Est Glom Filt Rate - Afr Amer 93 mL/min (>60); Glucose 97 mg/dL (74-106); High Density Lipoprotein 59 mg/dL; Sodium Level 139 mmol/L (136-145); Triglycerides 133 mg/dL; Very Low Density Lipoprotein 27 mg/dL (5-40)
== END | disposition home or self-care (01) ==
LOC: MFPLAB 11:35
PROVIDERS: PCP Family Medicine; Referring Provider Family Medicine; Visit Provider Family Medicine
DX: Z00.00 Encounter for general adult medical examination without abnormal findings (principal); E66.9 Obesity, unspecified
CPT/HCPCS: 36415; 80048; 80061; 82306

== ENCOUNTER → 2022-08-15 | Outpatient (CLI) | payer MEDICARE, MEDICAID, SELFPAY ==
--- NOTE | 2022-08-15 09:05 | BI_ITS ---
MAMMOGRAPHY - BILATERAL SCREENING REASON FOR EXAM: Female, 56 years old. Routine annual screening examination. PERTINENT HISTORY: Aunts with breast cancer. TECHNIQUE: Digital bilateral breast flory (3D mammographic acquisition) in the CC and MLO projections. 2-D mediolateral oblique (MLO) and craniocaudad (CC) views of both breasts were obtained. CAD: Full Field Digital Mammography with Computer Added Detection was performed. COMPARISON: Comparison is made with prior study dated 05/10/2022 and 05/31/2020. FINDINGS: Breast Composition: The breasts are extremely dense, which lowers the sensitivity of mammography. There are no dominant masses or suspicious calcifications. No other significant abnormalities are identified. There has been no significant change since the prior study. BI/SCRN MAMM (CAD)W/FLORY BILAT IMPRESSION: Stable bilateral screening mammogram. Yearly follow-up mammogram recommended. (A) ASSESSMENT CATEGORY: BIRADS Category 1: Negative. A letter regarding these results will be sent to the patient by the facility within 30 days. Approximately 10% of breast cancers are not detected by mammography. A normal mammogram should not delay biopsy of a clinically suspicious abnormality. [id number] Electronically Signed: Kirt López MD at 12:25 EST ,
== END | disposition home or self-care (01) ==
PROVIDERS: PCP Family Medicine; Visit Provider Family Medicine
DX: Z12.31 Encounter for screening mammogram for malignant neoplasm of breast (principal)
CPT/HCPCS: 77063; 77067

== ENCOUNTER → 2022-09-07 | Outpatient (CLI) | payer MEDICARE, MEDICAID, SELFPAY ==
--- NOTE | 2022-09-07 16:09 | RAD_ITS ---
STUDY: X-RAY CHEST REASON FOR EXAM: Female, 56 years old. WHEEZING TECHNIQUE: PA and lateral views of the chest. COMPARISON: 12/21/2021 FINDINGS: The lungs are clear and expanded. There is no demonstrated pleural abnormality. Normal size heart. Normal mediastinum and darren. Normal visualized pulmonary arteries. Normal visualized aortic arch and descending thoracic aorta. There are diffuse degenerative changes of the visualized thoracic spine. Normal visualized ribs, clavicles, and shoulders. There is no demonstrated abnormality of the visualized soft tissue structures of the upper abdomen. RAD/Chest PA and Lateral IMPRESSION: No acute pulmonary process Electronically Signed: Zelalem Kingsley MD at 8:09 EDT ,
== END | disposition home or self-care (01) ==
LOC: MTRAD 16:07
PROVIDERS: PCP Family Medicine; Referring Provider Family Medicine; Visit Provider Family Medicine
DX: R06.2 Wheezing (principal)
CPT/HCPCS: 71046

== ENCOUNTER → 2022-12-06 | Outpatient (CLI) | payer MEDICARE, MEDICAID, SELFPAY ==
[2022-12-06 18:14] LABS: Absolute Lymphocyte Count 1.76 X10^3/uL (0.83-4.51); Absolute Neutrophil Count 2.4 X10^3/uL (2.0-7.7); Basophil# 0.02 X10^3/uL; Basophil% 0.4 % (0-1); Eosinophils% 9.8 % (0-5); Hematocrit 41.6 % (37-47); Hemoglobin 13.6 g/dL (12.0-15.0); Lymphocyte # 1.76 X10^3/ul (0.83-4.51); Lymphocyte % 34.4 % (19-41); Mean Corp Hgb Conc 32.7 g/dL (32-36); Mean Corpuscular Hgb 28.5 pg (27.0-32.0); Mean Platelet Vol. 9.6 fl (6.2-12.0); Monocyte# 0.48 X10^3/uL; Monocyte% 9.4 % (0-10); NRBC Flagged by Analyzer 0 % (0-5); Neutrophil # 2.35 X10^3/uL (2.7-7.7); Neutrophil % 45.8 % (47-70); Platelet Count 236 K/mm3 (150-450); RBC Distribution Width CV 13.5 % (11.6-14.6); RBC Distribution Width SD 43.3 fl (35.1-43.9); Red Blood Count 4.78 M/mm3 (4.2-5.4); White Blood Count 5.1 K/mm3 (4.4-11.0)
[2022-12-06 19:13] LABS: Thyroid Stim Hormone (TSH) 2.21 uIU/mL (0.358-3.74)
== END | disposition home or self-care (01) ==
LOC: MFPLAB 15:17
PROVIDERS: PCP Family Medicine; Visit Provider Family Medicine
DX: R53.83 Other fatigue (principal)
CPT/HCPCS: 36415; 84443; 85025

== ENCOUNTER 2023-08-07 08:29 | Outpatient (CLI) | payer MEDICARE, MEDICAID, SELFPAY ==
[2023-08-07 10:38] LABS: Anion Gap 5 (5-15); BUN 22 mg/dL (7-18); BUN/Creat Ratio 24.9 RATIO (10-20); Calcium,Total 9.4 mg/dL (8.5-10.1); Chloride 108 mmol/L (98-107); Cholesterol 197 mg/dL (200); Creatinine, Serum 0.88 mg/dL (0.55-1.02); EST Glomerular Filtration Rate 70 mL/min (>60); Est Glom Filt Rate - Afr Amer 85 mL/min (>60); Glucose 118 mg/dL (74-106); High Density Lipoprotein 59 mg/dL; Potassium 4.1 mmol/L (3.5-5.1); Sodium Level 140 mmol/L (136-145); Thyroid Stim Hormone (TSH) 1.41 uIU/mL (0.358-3.74); Triglycerides 73 mg/dL; Very Low Density Lipoprotein 15 mg/dL (5-40)
== END 2023-08-07 23:59 | disposition home or self-care (01) ==
LOC: MFPLAB 08:29
PROVIDERS: PCP Family Medicine; Visit Provider Family Medicine
DX: Z00.00 Encounter for general adult medical examination without abnormal findings (principal); R53.83 Other fatigue; E66.9 Obesity, unspecified
CPT/HCPCS: 36415; 80048; 80061; 84443

== ENCOUNTER → 2023-09-04 | Outpatient (CLI) | payer MEDICARE, MEDICAID, SELFPAY ==
--- NOTE | 2023-09-04 09:37 | BI_ITS ---
MAMMOGRAPHY - BILATERAL SCREENING REASON FOR EXAM: Female, 57 years old. Routine annual screening examination. PERTINENT HISTORY: Aunts with breast cancer. TECHNIQUE: Digital bilateral breast flory (3D mammographic acquisition) in the CC and MLO projections. 2-D mediolateral oblique (MLO) and craniocaudad (CC) views of both breasts were obtained. CAD: Full Field Digital Mammography with Computer Added Detection was performed. COMPARISON: Comparison is made with prior study dated August 15, 2022 and August 10, 2021. FINDINGS: Breast Composition: The breasts are extremely dense, which lowers the sensitivity of mammography. There are no dominant masses or suspicious calcifications. No other significant abnormalities are identified. There has been no significant change since the prior study. BI/SCRN MAMM (CAD)W/FLORY BILAT IMPRESSION: Stable bilateral screening mammogram. Yearly follow-up mammogram recommended. (A) ASSESSMENT CATEGORY: BIRADS Category 1: Negative. A letter regarding these results will be sent to the patient by the facility within 30 days. Approximately 10% of breast cancers are not detected by mammography. A normal mammogram should not delay biopsy of a clinically suspicious abnormality. [id number] Electronically Signed: Kirt López MD at 11:20 EDT ,
--- NOTE | 2023-09-04 09:42 | BD_ITS ---
STUDY: DUAL ENERGY X-RAY ABSORPTIOMETRY / DXA REASON FOR EXAM: Female, 57 years old. [id number] TECHNIQUE: Bone Mineral Density (BMD) measurements of lumbar spine and bilateral hips were obtained. COMPARISON: Comparison is made with prior study January 30, 2017. FINDINGS: Lumbar Spine (L1-L4): g/cm2 (0.913) / T-score (-1.2) / Z-score (0.0) Findings are suggestive of osteopenia with a low fracture risk. Left Femur Total: g/cm2 (0.844) / T-score (-0.8) / Z-score (0.0) Left Femoral Neck: g/cm2 (0.753) / T-score (-0.9) / Z-score (0.3) Right Femur Total: g/cm2 (0.791) / T-score (-1.2) / Z-score (-0.5) Right Femoral Neck: g/cm2 (0.843) / T-score (-0.1) / Z-score (1.1) The T-Scores on the most recent prior examination were: Lumbar Spine (L1-L4): There has been worsening of bone density since the previous examination. Left Femur Total: which represents a worsening of 10.3%. Right Femur Total: which represents a worsening of 11.6%. BD/Dexa Bone Density Study IMPRESSION: The patient is considered osteopenic as outlined below according to World Dominic Organization (WHO) criteria with a low fracture risk. There has been worsening of bone density since the previous examination. Reference Information: The T-score is the number of standard deviations above or below the standard which is normal for young adults at their peak bone mineral density. The World Health Organization (WHO) interprets the T-scores as follows: Above -1 Normal bone density Between -1 and -2.5 Osteopenia Equal to / or below -2.5 Osteoporosis As a practical clinical guideline, osteopenia may be graded as follows: Mild -1 through -1.5 Moderate -1.6 through -2.0 Severe -2.1 through -2.4 The Z-score is the number of standard deviations above or below age-matched controls. A Z-score of less than -1.5 would be considered abnormal. References: 1. NIH Osteoporosis and Related Bone Diseases www osteo.org 2. International Society for Clinical Densitometry www iscd.org 3. National Osteoporosis Foundation www nof.org Electronically Signed: Kirt López MD at 8:31 EDT ,
--- OUTSIDE RECORDS SUMMARY | 2023-09-04 22:11 | XMS RPT_ITS | CCD ---
Author Name Unknown Address [address] [place] [address] Organization [facility] Care Team Providers Care Cooper Apprentice Name Role Phone Dalton Holman Primary Care Provider Unavailabl e Problems Problem Classification Problem Date Documented Da te Episodic/Chronic Genitourinary symptoms and ill-defined conditions (1 source) Incontinence; Translations: [Mixed incontinence] Onset: 12-18-2012 12-18-2012 Chronic Results Test Name Value Interpretation Reference Range Facil ity Encounters Encounter Date Encounter Type Care Provider Facility Start: 02-26-2020 End: 02-26-2020 Telephone encounter Elgin Funez Work Phone: Urology Plan of Treatment Date Care Activity Detail Author Start: 02-24-2020 Influenza vaccination INFLUENZA (#1) [facility] Start: 2016 SHINGRIX VACCINE (1 of 2) LADD GRIX VACCINE (1 of 2) [facility] Start: 2016 Tuberculosis screening [facility]OR[facility] ANTHONY CANCER SCREENING,SEE MODIFIER [facility] Start: 11-30-2011 DIABETES SCREEN DIABETES SCREEN [facility] Start: 11-30-2011 LIPID SCREEN LIPID SCREEN [facility] Start: 09-15-2010 HPV TESTING HPV TESTING [facility] Start: 09-15-2010 PAP TESTING PAP TESTING [facility] Start: 2006 Mammography MAMMOGRAM [facility] Start: 1985 Urine microalbumin profile DTAP,TDAP ,TD (1 - Tdap) [facility] Start: 1984 HEPATITIS C SCREENING HEPATITIS C SC ERNESTONING [facility] Start: 1984 HIV SCREENING HIV SCREENING [facility] Payers Date Payer Category Payer Medicaid [employer] [id number] 2010-Present Medicaid [id number] Social History Date Type Detail Facility Start: 12-07-2014 [facility] Start: 12-07-2014 Tobacco use and exposure Never used [facility] Start: 12-07-2014 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) [facility] Sex Assigned At Not on file [facility] History of Past Illness Problem Noted Date Resolved Date Supervision of other normal 09/08/2005 12/18/2012 Summary Purpose Family History No Family History Records Found Advance Directives No Advanced Directives Records Found Additional Source Comments Source Comments (unrecognize d section and content) In the event this informatio n is protected by the Federal Confidentiality of Alcohol and Drug Abuse Patient Records regulations: The Federal rules restrict any use of the information to criminally investigate or prosecute any alcohol or drug abuse patient.[facility] Reason for Visit (unrecogniz ed section and content) Telephone Encounter - Cara Kapadia - 02/26/2020 8:59 AM EDT Miscellaneous Notes (unrecog nized section and content) Called patient to schedule appointment with Dr. Funez per referral from Dr. Dalton Weber DX stress incontinence, s/p sling and failed on medications Cara Cullen documented in this encounter INFORMATION SOURCE (unrecogn ized section and content) FOR RECORDS PERTAINING TO PATIENTS WHO ARE OR HAVE BEEN ENROLLED IN A CHEMICAL DEPENDENCY/SUBSTANCEABUSE PROGRAM, SOME INFORMATION MAY BE OMITTED. This clinical summary was aggregated from multiple sources. Caution should be exercised in using it in the provision of clinical care. This summary normalizes information from multiple sources, and as a consequence, information in this document may materially change the coding, format and clinical context of patient data. In addition, data may be omitted in some cases. CLINICAL DECISIONS SHOULD BE BASED ON THE PRIMARY CLINICAL RECORDS. [facility]. provides no warranty or guarantee of the accuracy or completeness of information in this document.
== END | disposition home or self-care (01) ==
LOC: OPBD 09:35
PROVIDERS: PCP Family Medicine; Referring Provider Family Medicine; Visit Provider Family Medicine
DX: Z12.31 Encounter for screening mammogram for malignant neoplasm of breast (principal); Z78.0 Asymptomatic menopausal state
CPT/HCPCS: 77063; 77067; 77080

== ENCOUNTER → 2025-02-13 | Outpatient (CLI) | payer MEDICARE, SELFPAY | END | disposition home or self-care (01) | LOC: LABSPEC 11:45 | PROVIDERS: PCP Family Medicine; Referring Provider Family Medicine; Visit Provider Family Medicine | DX: N39.0 Urinary tract infection, site not specified (principal) | CPT/HCPCS: 87077; 87086; 87088; 87186 ==

== ENCOUNTER → 2025-02-18 | Outpatient (CLI) | payer MEDICARE, SELFPAY ==
[2025-02-18 12:59] LABS: Anion Gap 13 (5-15); BUN 25 mg/dL (4-19); BUN/Creat Ratio 32.9 RATIO (10-20); Calcium,Total 9.5 mg/dL (7.6-11.0); Carbon Dioxide 23.1 mmol/L (21.0-32.0); Chloride 103 mmol/L (98-108); Glucose 104 mg/dL (70-99); Potassium 4.3 mmol/L (3.3-5.1)
--- OUTSIDE RECORDS SUMMARY | 2025-02-18 20:17 | XMS RPT_ITS | CCD ---
Author Organization [facility] Inform ion Partnership [facility] Care Team Providers Care Steel Erecting Pusher Name Role Phone [place] Primary Care Provider Pernell Vick Referring Unavailable Pernell Zavala Attending Unavailable Pernell Zavala Primary Care Unavailable Allergies Allergy Classification Reported Allergen(s) Allergy Type Date of Onset Reaction(s) Facility (5 sources) Oats preparation Drug Allergy 2 Shortness of breath [facility] (1 source) Oats Drug allergy (disorder) 2 [facility] Repository Medications Current Medications Medication Drug Class(es) Dates Sig (Normalized) Sig (Original) acetaminophen 325 mg / oxyCODONE hydrochloride 5 mg oral tablet (6 sources) Opioid Agonist Start: 12-22-2021 take 1 tablet by mouth every eight hours Oxycodone-Acetam inophen (Percocet) 5-325 mg tablet Active 1 TABLET PO Q8H 10 3 December 22, 2021 ascorbic acid 500 mg oral tablet (6 sources) Vitamin C Start: 12-19-2021 take 1 tablet by mouth once daily Ascorbic Acid (Vitamin C) (Vitamin C) 500 mg Tablet Active 500 MG PO DAILY December 19, 2021 12:00am cephalexin 250 mg oral capsule (6 sources) Cephalosporin Antibacterial Start: 12-19-2021 take 250 mg by mouth at bedtime Cephalexin Active 250 MG PO AT BEDTIME December 19, 2021 12:00am D-Mannose (6 sources) Start: 12-19-2021 take 500 mg by mouth once daily D-Mannose Active 500 MG PO DAILY December 18, 2021 11:00pm Start: 12-19-2021 take 500 mg by mouth once douglas y D-Mannose Active 500 MG PO DAILY December 19, 2021 12:00am Lactobac 40-Bifido 3-S.Therm op (Probiotic) 100 billion cell Capsule (6 sources) Start: 12-19-2021 Lactobac 40-Bi fido 3-S.Thermop (Probiotic) 100 billion cell Capsule Active 1 CAP PO DAILY December 18, 2021 11:00pm Start: 12-19-2021 Lactobac 40-Bi fido 3-S.Thermop (Probiotic) 100 billion cell Capsule Active 1 CAP PO DAILY December 19, 2021 12:00am 24 hr oxybutynin chloride 15 mg extended release oral tablet (12 sources) Cholinergic Muscarinic Antagonist Start: 05-03-2018 take 15 mg by mouth once daily Oxybutynin Chloride Active 15 MG PO DAILY May 03, 2018 1:00am Start: 10-06-2016 End: 05-03-2018 take 15 mg by mouth twice daily Oxybutynin Chloride Discontinued 15 MG PO TWICE A DAY October 06, 2016 12:00am May 03, 2018 1:55pm phenazopyridine hydrochloride 200 mg oral tablet (6 sources) Start: 12-22-2021 take 1 tablet by mouth three times daily as needed Phenazopyridine (Pyridium) 200 mg tablet Active 200 MG PO 3 TIMES DAILY NEEDED 30 7 December 22, 2021 12:00am Completed/Discontinued Medications Medication Drug Class(es) Dates Sig (Normalized) Sig (Original) [id number] 60 actuat albuterol 0.09 mg/actuat metered dose inhaler (6 sources) beta2-Adrenergic Agonist Start: 04-19-2018 End: 12-09-2018 take 1 puff(s) by inhalation every four hours as needed Albuterol Sulfate Discontinued 1 - 2 PUFF INHALATION EVERY 4 HOURS NEEDED April 19, 2018 12:00am December 09, 2018 1:12pm cetirizine hydrochloride 10 mg oral tablet (12 sources) Histamine-1 Receptor Antagonist Start: 04-19-2018 End: 07-29-2020 take 10 mg by mouth once daily Cetirizine Discontinued 10 MG PO DAILY January 22, 2020 10:10am July 29, 2020 10:27am estradiol 2 mg oral tablet (6 sources) Estrogen Start: 10-06-2016 End: 01-22-2020 take 2 mg by mouth at bedtime Estradiol Discontinued 2 MG PO AT BEDTIME October 06, 2016 12:00am January 22, 2020 10:10am fluticasone propionate 0.05 mg/actuat metered dose nasal spray (6 sources) Corticosteroid Start: 06-12-2019 End: 07-29-2020 take 1 spray(s) nasal route once daily Fluticasone Propionate (Flonase Allergy Relief) 50 mcg/actuation spray,suspension Discontinued 1 SPRAY INTRANASAL DAILY June 12, 2019 1:00am July 29, 2020 10:27am administer into each nostril Multivitamin preparation (6 sources) Start: 06-12-2019 End: 01-22-2020 take 1 tablet by mouth once daily Multivitamin Discontinued 1 TABLET PO DAILY June 12, 2019 12:00am January 22, 2020 9:11am Start: 06-12-2019 End: 01-22-2020 take 1 tablet by mouth once daily Multivitamin Discontinued 1 TABLET PO DAILY June 12, 2019 1:00am January 22, 2020 10:11am Problems Problem Classification Problem Date Documented Date Episodic/Chronic Asthma (6 sources) Reactive airway disease; Translations: [Unspecified asthma, uncomplicated] 05-03-2018 Chronic Diverticulosis and diverticulitis (6 sources) Diverticulitis of intestine; Translations: [Diverticulitis of intestine, part unspecified, without perforation or abscess without bleeding] 05-03-2018 Chronic Genitourinary symptoms and ill-defined conditions (8 sources) Incontinence; Translations: [Urge incontinence of urine] Onset: 12-18-2012 12-18-2012 Chronic Genitourinary symptoms and ill-defined conditions (7 sources) Increased frequency of urination; Translations: [Frequency of micturition] Episodic Intracranial injury (6 sources) History of closed head injury; Translations: [Personal history of traumatic brain injury] 12-19-2021 Episodic Neoplasms of unspecified nature or uncertain behavior (7 sources) Neoplasm of uncertain behavior of bladder; 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] Episodic Other screening for suspected conditions (not mental disorders or infectious disease) (6 sources) Electrocardiogram abnormal; Translations: [Abnormal electrocardiogram [ECG] [EKG]] 07-29-2020 Episodic Sprains and strains (6 sources) Strain of tendon of foot and ankle; Translations: [Strain of unspecified muscle and tendon at ankle and foot level, right foot, initial encounter] 11-16-2017 Episodic Urinary tract infections (1 source) Urinary tract infection, site not specified; Translations: [Urinary tract infection, site not specified] Onset: 02-13-2025 Episodic Results Test Name Value Interpretation Reference Range Facility Urine Cultureon 02-15-2025 [facility] Escherichia coli [place] Count >100,000 Escherichia coli: REACTION Ampicillin Islt KAMRAN 8 Ampicillin+Sulbac Islt KAMRAN <=2 S Cefepime Islt KAMRAN <=0.12 S cefTRIAXone Islt KAMRAN <=0.25 S Ciprofloxacin Islt KAMRAN <=0.06 S B-Lactamase Extended Susc Islt NEG Gentamicin Islt KAMRAN <=1 S levoFLOXacin Islt KAMRAN <=0.12 S Meropenem Islt KAMRAN <=0.25 S Nitrofurantoin Islt KAMRAN <=16 S Pip+Tazo Islt KAMRAN <=4 S TMP SMX Islt KAMRAN <=20 S Normal [facility] Comment on above: Performed By: #### M 100.2200 #### [facility] [address] [place], [address] Basophil percentageOrdered B y: Pernell Zavala on 08-07-2023 Chloride [Moles/Vol] 108 mmol/L 98-107 [facility] Cholesterol [Mass/Vol] 197 mg/dL <200 [facility] Comment on above: <200 mg/dL Desirable 200-240 mg/dL Borderline >240 mg/dL High Risk Glucose [Mass/Vol] 118 mg/dL 74-106 [facility] Comment on above: Fasting Glucose resu lt from 100 to 125 mg/dL suggests IMPAIRED HOMEOSTASIS per A.D.A. criteria. Potassium [Moles/Vol] 4.1 mmol/L 3.5-5.1 [facility] Sodium [Moles/Vol] 140 mmol/L 136-145 [facility] Triglyceride [Mass/Vol] 73 mg/dL <199 [facility] Comment on above: The drugs N-Acetylcy steine and Metamizole may falsely depress this assay.Serum Triglycerides Reference Interval Normal <150 mg/dL Borderline high 150 - 199 mg/dL High 200 - 499 mg/dL Very High > or = 500 mg/dL Laboratory - Chemistry and C hemistry - challengeOrdered By: Pernell Zavala on 08-07-2023 Cholesterol in HDL [Mass/Vol] 59 mg/dL >40 [facility] Comment on above: The drugs N-Acetylcy steine and Metamizole may falsely depress this assay. Reference Range HDL <40 mg/dL Low HDL Cholesterol HDL >or= 60 mg/dL High HDL Cholesterol Cholesterol in LDL [Mass/Vol] 123 mg/dL 0-130 [facility] CO2 [Moles/Vol] 27.0 mmol/L 21.0-32.0 [facility] Urea nitrogen/Creatinine [Mass ratio] 24.9 mg/mg 10-20 [facility] No Panel InformationOrdered By: Pernell Zavala on 08-07-2023 Estimated GFR (MDRD) Amer 85 mL/min >60 [facility] Comment on above: GFR Calc Estimated GFR (MDRD) Non-Af Amer 70 mL/min >60 [facility] Comment on above: Non- GFR Calc VLDL Cholesterol 15 mg/dL 5-40 [facility] Serum or plasma calcium kari urement (mass/volume)Ordered By: Pernell Zavala on 08-07-2023 Calcium [Mass/Vol] 9.4 mg/dL 8.5-10.1 [facility] Serum or plasma creatinine m easurement (mass/volume)Ordered By: Pernell Zavala on 08-07-2023 Creatinine [Mass/Vol] 0.88 mg/dL 0.55-1.02 [facility] Comment on above: The validity of the calculated GFR & GFRAA in patients over 70 years has not been determined. Clinical correlation is essential. Serum or plasma thyroid stim ulating hormone (TSH) measurement (units/volume)Ordered By: Pernell Zavala on 08-07-2023 TSH Qn 1.41 uIU/mL 0.358-3.74 [facility] Serum or plasma urea nitroge n measurement (mass/volume)Ordered By: Pernell Zavala on 08-07-2023 Urea nitrogen [Mass/Vol] 22 mg/dL 7-18 [facility] Thin prep Papanicolaou smear with manual screeningOrdered By: Pernell Zavala on 08-07-2023 Thin prep Papanicolaou smear with manual screening 5 5-15 [facility] Absolute lymphocyte countOrd ered By: Dr. Zavala on 12-06-2022 Lymphocytes Auto (Unsp spec) [#/Vol] 1.76 10*3/uL 0.83-4.51 [facility] Basophil percentageOrdered B y: Dr. Zavala on 12-06-2022 Basophils/100 WBC (Bld) 0.4 % 0-1 [facility] Eosinophils/100 WBC (Bld) 9.8 % 0-5 [facility] Neutrophils (Bld) [#/Vol] 2.4 10*3/uL 2.0-7.7 [facility] Neutrophils/100 WBC (Bld) 45.8 % 47-70 [facility] WBC (Bld) [#/Vol] 5.1 10*3/uL 4.4-11.0 [facility] Blood erythrocytes count (nu mber/volume)Ordered By: Dr. Zavala on 12-06-2022 RBC (Bld) [#/Vol] 4.78 10*6/uL 4.2-5.4 [facility] Blood hemoglobin measurement (mass/volume)Ordered By: Dr. Zavala on 12-06-2022 Hemoglobin (Bld) [Mass/Vol] 13.6 g/dL 12.0-15.0 [facility] Blood lymphocytes/100 leukoc ytesOrdered By: Dr. Zavala on 12-06-2022 Lymphocytes/100 WBC (Bld) 34.4 % 19-41 [facility] Blood monocytes/100 leukocyt esOrdered By: Dr. Zavala on 12-06-2022 Monocytes/100 WBC (Bld) 9.4 % 0-10 [facility] Blood platelet mean volumeOr dered By: Dr. Zavala on 12-06-2022 Platelet mean volume (Bld) [Entitic vol] 9.6 fL 6.2-12.0 [facility] Determination of erythrocyte mean corpuscular volume (MCV)Ordered By: Dr. Zavala on 12-06-2022 MCV (RBC) [Entitic vol] 87.0 fL 81-99 [facility] Hematocrit Auto (Bld) [Volum e fraction]Ordered By: Dr. Zavala on 12-06-2022 Hematocrit (Bld) [Volume fraction] 41.6 % 37-47 [facility] - Hematology and Cell countsOrdered By: Dr. Zavala on 12-06-2022 Erythrocyte distribution width (RBC) [Entitic vol] 43.3 fL 35.1-43.9 [facility] Erythrocyte distribution width (RBC) [Ratio] 13.5 % 11.6-14.6 [facility] Immature granulocytes/100 WBC (Bld) 0.200 % 0.0-0.9 [facility] Comment on above: IG% - Immature Granu locytes (promyelocytes, myelocytes and metamyelocytes) > 1% indicates that a LEFT SHIFT is Present. MCH (RBC) [Entitic mass] 28.5 pg 27.0-32.0 [facility] Nucleated RBC/100 WBC (Bld) [Ratio] 0 % 0-5 [facility] MCHC Auto (RBC) [Mass/Vol]Or dered By: Dr. Zavala on 12-06-2022 MCHC (RBC) [Mass/Vol] 32.7 g/dL 32-36 [facility] No Panel InformationOrdered By: Dr. Zavala on 12-06-2022 Thyroid Stimulating Hormone (TSH) 2.21 uIU/mL 0.358-3.74 [facility] Platelets bldOrdered By: Dr. Zavala on 12-06-2022 Platelets (Bld) [#/Vol] 236 10*3/uL 150-450 [facility] Basophil percentageOrdered B y: Dr. Zavala on 08-03-2022 Chloride [Moles/Vol] 103 mmol/L 98-107 [facility] Cholesterol [Mass/Vol] 216 mg/dL <200 [facility] Comment on above: <200 mg/dL Desirable 200-240 mg/dL Borderline >240 mg/dL High Risk Glucose [Mass/Vol] 97 mg/dL 74-106 [facility] Potassium [Moles/Vol] 4.0 mmol/L 3.5-5.1 [facility] Sodium [Moles/Vol] 139 mmol/L 136-145 [facility] Triglyceride [Mass/Vol] 133 mg/dL <199 [facility] Comment on above: The drugs N-Acetylcy steine and Metamizole may falsely depress this assay.Serum Triglycerides Reference Interval Normal <150 mg/dL Borderline high 150 - 199 mg/dL High 200 - 499 mg/dL Very High > or = 500 mg/dL Laboratory - Chemistry and C hemistry - challengeOrdered By: Dr. Zavala on 08-03-2022 CO2 [Moles/Vol] 28.0 mmol/L 21.0-32.0 [facility] Urea nitrogen/Creatinine [Mass ratio] 24.4 mg/mg 10-20 [facility] No Panel InformationOrdered By: Dr. Zavala on 08-03-2022 Estimated GFR (MDRD) Amer 93 mL/min >60 [facility] Comment on above: GFR Calc Estimated GFR (MDRD) Non-Af Amer 77 mL/min >60 [facility] Comment on above: Non- GFR Calc Vitamin D 25-Hydroxy 24.1 ng/mL [facility] Comment on above: Vitamin D 25(OH) Sta tus Range Deficiency <20 ng/mL (50nmol/L) Insufficiency 20 - 30 ng/mL (50 - 75 nmol/L) Sufficiency 30 - 100 ng/mL (75 - 250 nmol/L) Toxicity >100 ng/mL (>250 nmol/L) Serum or plasma calcium kari urement (mass/volume)Ordered By: Dr. Zavala on 08-03-2022 Calcium [Mass/Vol] 9.1 mg/dL 8.5-10.1 [facility] Serum or plasma cholesterol in HDL measurement (mass/volume)Ordered By: Dr. Zavala on 08-03-2022 Cholesterol in HDL [Mass/Vol] 59 mg/dL >40 [facility] Comment on above: The drugs N-Acetylcy steine and Metamizole may falsely depress this assay. Reference Range HDL <40 mg/dL Low HDL Cholesterol HDL >or= 60 mg/dL High HDL Cholesterol Serum or plasma cholesterol in VLDL measurement (mass/volume)Ordered By: Dr. Zavala on 08-03-2022 Cholesterol in VLDL [Mass/Vol] 27 mg/dL 5-40 [facility] Serum or plasma creatinine m easurement (mass/volume)Ordered By: Dr. Zavala on 08-03-2022 Creatinine [Mass/Vol] 0.82 mg/dL 0.55-1.02 [facility] Comment on above: The validity of the calculated GFR & GFRAA in patients over 70 years has not been determined. Clinical correlation is essential. Serum or plasma low density lipoprotein (LDL) cholesterol measurement (mass/volume)Ordered By: Dr. Zavala on 08-03-2022 Cholesterol in LDL [Mass/Vol] 130 mg/dL 0-130 [facility] Serum or plasma urea nitroge n measurement (mass/volume)Ordered By: Dr. Zavala on 08-03-2022 Urea nitrogen [Mass/Vol] 20 mg/dL 7-18 [facility] Thin prep Papanicolaou smear with manual screeningOrdered By: Dr. Zavala on 08-03-2022 Thin prep Papanicolaou smear with manual screening 8 5-15 [facility] Basophil percentageon 2021 Chloride [Moles/Vol] 105 mmol/L 98-107 [facility] Work Phone: Glucose [Mass/Vol] 113 mg/dL 74-106 [facility] Work Phone: Comment on above: Fasting Glucose resu lt from 100 to 125 mg/dL suggests IMPAIRED HOMEOSTASIS per A.D.A. criteria. Potassium [Moles/Vol] 3.4 mmol/L 3.5-5.1 [facility] Work Phone: Sodium [Moles/Vol] 141 mmol/L 136-145 [facility] Work Phone: WBC (Bld) [#/Vol] 9.4 10*3/uL 4.4-11.0 [facility] Work Phone: Blood erythrocytes count (nu mber/volume)on 12-21-2021 RBC (Bld) [#/Vol] 4.56 10*6/uL 4.2-5.4 [facility] Work Phone: Blood hemoglobin measurement (mass/volume)on 12-21-2021 Hemoglobin (Bld) [Mass/Vol] 12.9 g/dL 12.0-15.0 [facility] Work Phone: Blood platelet mean volumeon 12-21-2021 Platelet mean volume (Bld) [Entitic vol] 8.8 fL 6.2-12.0 [facility] Work Phone: Determination of erythrocyte mean corpuscular volume (MCV)on 12-21-2021 MCV (RBC) [Entitic vol] 86.6 fL 81-99 [facility] Work Phone: Hematocrit Auto (Bld) [Volum e fraction]on 12-21-2021 Hematocrit (Bld) [Volume fraction] 39.5 % 37-47 [facility] Work Phone: Laboratory - Chemistry and C hemistry - challengeon 12-21-2021 CO2 [Moles/Vol] 31.0 mmol/L 21.0-32.0 [facility] Work Phone: Urea nitrogen/Creatinine [Mass ratio] 30.7 mg/mg 10-20 [facility] Work Phone: Laboratory - Hematology and Cell countson 12-21-2021 Erythrocyte distribution width (RBC) [Entitic vol] 43.4 fL 35.1-43.9 [facility] Work Phone: Erythrocyte distribution width (RBC) [Ratio] 13.7 % 11.6-14.6 [facility] Work Phone: MCH (RBC) [Entitic mass] 28.3 pg 27.0-32.0 [facility] Work Phone: MCHC Auto (RBC) [Mass/Vol]on 12-21-2021 MCHC (RBC) [Mass/Vol] 32.7 g/dL 32-36 [facility] Work Phone: No Panel Informationon 12-21 Estimated GFR (MDRD) Amer 98 mL/min >60 [facility] Work Phone: Comment on above: GFR Calc Estimated GFR (MDRD) Non-Af Amer 81 mL/min >60 [facility] Work Phone: Comment on above: Non- GFR Calc Platelets bldon 12-21-2021 Platelets (Bld) [#/Vol] 252 10*3/uL 150-450 [facility] Work Phone: Serum or plasma calcium kari urement (mass/volume)on 12-21-2021 Calcium [Mass/Vol] 8.7 mg/dL 8.5-10.1 [facility] Work Phone: Serum or plasma creatinine m easurement (mass/volume)on 12-21-2021 Creatinine [Mass/Vol] 0.78 mg/dL 0.55-1.02 [facility] Work Phone: Comment on above: The validity of the calculated GFR & GFRAA in patients over 70 years has not been determined. Clinical correlation is essential. Serum or plasma urea nitroge n measurement (mass/volume)on 12-21-2021 Urea nitrogen [Mass/Vol] 24 mg/dL 7-18 [facility] Work Phone: Thin prep Papanicolaou smear with manual screeningon 12-21-2021 Thin prep Papanicolaou smear with manual screening 5 5-15 [facility] Work Phone: [place] 02-26-2020 IVETH Telephone (UROLAE) -------- RUBINA SMITH ([id number]) 1965 F Date Time Provider Department 02/26/20 ELGIN FUNEZ During your visit today, we recorded the following information about you: Katherine Cullen 02/26/2020 9:00 AM Signed Called patient to schedule appointment with Dr. Funez per referral from Dr. Dalton BOO stress incontinence, s/p sling and failed on medications Katherine Cullen Allergies As of Date: 02/26/2020 (No Known Allergies) Date Reviewed: 12/18/2012 Reviewed by: Ginny Collins Lpn - Fully Assessed Reason for Visit: Referral Information [[id number]] Problem List As Of Date 02/26/2020 Noted Resolved Supervision of other normal [Z34.80] 09/08/2005 12/18/2012 Mixed incontinence [N39.46] 12/18/2012 Encounter Status:Closed by KATHERINE KAPADIA on 02/26/20 [facility] Vital Signs Date Time Vital Sign Value Performing Clinician Octavio mortensen 09-04-2023 09:39-0400 Body height 162.56 cm [facility] 12-22-2021 12:07-0400 Body temperature 98.2 [degF] [facility] Work Phone: 12-22-2021 12:07-0400 Diastolic blood pressure 80 mm[Hg] [facility] Work Phone: 12-22-2021 12:07-0400 Heart rate 67 /min [facility] Work Phone: 12-22-2021 12:07-0400 Respiratory rate 16 /min [facility] Work Phone: 12-22-2021 12:07-0400 SaO2% (BldA) [Mass fraction] 100 % [facility] Work Phone: 12-22-2021 12:07-0400 Systolic blood pressure 126 mm[Hg] [facility] Work Phone: 12-22-2021 10:16-0400 Body height 162.56 cm [facility] Work Phone: 12-22-2021 10:16-0400 Body mass index (BMI) [Ratio] 37 kg/m2 [facility] Work Phone: 12-22-2021 10:16-0400 Body weight 98 kg [facility] Work Phone: Encounters Encounter Date Encounter Type Care Provider Facility Start: 02-13-2025 ambulatory Pernell Zavala Facility:[facility] Start: 09-04-2023 End: 09-04-2023 ambulatory [facility] Work Phone: Start: 09-04-2023 End: 09-04-2023 Patient encounter procedure [facility] Work Phone: Start: 08-07-2023 End: 08-07-2023 ambulatory [facility] Work Phone: Start: 08-07-2023 End: 08-07-2023 Patient encounter procedure [facility] Start: 12-06-2022 End: 12-06-2022 ambulatory [facility] Work Phone: Start: 12-06-2022 End: 12-06-2022 Patient encounter procedure [facility] Start: 09-07-2022 End: 09-07-2022 ambulatory [facility] Work Phone: Start: 09-07-2022 End: 09-07-2022 Patient encounter procedure [facility] Start: 08-15-2022 End: 08-15-2022 ambulatory [facility] Work Phone: Start: 08-15-2022 End: 08-15-2022 Patient encounter procedure [facility] Start: 08-03-2022 End: 08-03-2022 Patient encounter procedure [facility] Start: 04-26-2022 End: 04-26-2022 Patient encounter procedure [facility] Start: 12-22-2021 End: 12-22-2021 Admission to same day surgery center [facility] Start: 02-26-2020 End: 02-26-2020 Telephone encounter Elgin Funez Work Phone: Urology Comment on above: Referral Information Procedures Date Procedure Procedure Detail Performing Clinician Start: 09-04-2023 Dual energy X-ray absorptiometry Start: 09-04-2023 Screening mammography Start: 09-07-2022 Plain chest X-ray Start: 08-15-2022 Screening mammography Start: 04-26-2022 Videoswallow Start: 12-22-2021 Cysto,Biopsy,Fulgura tion,Blad christophe Tumor (Not Applicable) Start: 12-21-2021 Plain chest X-ray Viral antigen assay Plan of Treatment Date Care Activity Detail Author Start: 12-22-2021 Patient discharge [facility] Work Phone: Start: 02-24-2020 Influenza vaccination INFLUENZA (#1) [facility] Start: 2016 SHINGRIX VACCINE (1 of 2) LADD GRIX VACCINE (1 of 2) [facility] Start: 2016 Tuberculosis screening COLOREC ANTHONY CANCER SCREENING,SEE MODIFIER [facility] Start: 11-30-2011 DIABETES SCREEN DIABETES SCREEN [facility] Start: 11-30-2011 LIPID SCREEN LIPID SCREEN [facility] Start: 09-15-2010 HPV TESTING HPV TESTING [facility] Start: 09-15-2010 PAP TESTING PAP TESTING [facility] Start: 2006 Mammography MAMMOGRAM [facility] Start: 1985 Urine microalbumin profile DTAP,TDAP,TD (1 - Tdap) [facility] Start: 1984 HEPATITIS C SCREENING HEPATITIS C SC REENING [facility] Start: 1984 HIV SCREENING HIV SCREENING [facility] Patient referral [facility] Work Phone: Payers Date Payer Category Payer Medicare [id number] 2025 Self-pay [id number] 2016 Unknown [id number] 2010 Medicaid [employer] [id number] 2010-Present Medicaid [id number] Private Health Insurance [id number] Unknown [employer] [id number] Unknown 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 (finding) [facility] Sex Assigned At Not on file [facility] Start: 12-19-2021 End: 12-19-2021 Tobacco smoking status NHIS Unknown if ever smoked [facility] Start: 1965 Sex Assigned At Female [facility] Medical Equipment Procedure Code Equipment Code Equipment Original Text Equipment Identifier Dates MACROPLASTIQUE I MPLANT 2.5ML FDA Start: 05-03-2018 MACROPLASTIQUE I MPLANT 2.5ML FDA Start: 05-03-2018 MACROPLASTIQUE I MPLANT 2.5ML FDA Start: 05-03-2018 MACROPLASTIQUE I MPLANT 2.5ML FDA Start: 05-03-2018 MACROPLASTIQUE I MPLANT 2.5ML FDA Start: 05-03-2018 MACROPLASTIQUE I MPLANT 2.5ML FDA Start: 05-03-2018 Goals Date Patient Goal Desired Activity /State Functional Status Date Assessment Result Facility 12-22-[address] 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 Urge incontinence acute Urinary frequency acute [facility] Work Phone: Evaluation note Note Date & Type Note Facility Evaluation note No assessment information availa ble [facility] Work Phone: History of Past Illness Problem Noted Date Resolved Date Supervision of other normal 09/08/2005 12/18/2012 Summary Purpose Family History No Family History Records Found Relationship Condition Age at Onset Recorded Date/[place] aunt Malignant neoplasm of breast Unknown grandmother Malignant neoplasm of colon Unknown father Chronic obstructive pulmonary disease Unk nown Coronary artery disease Unknown mother Diabetes mellitus Unknown Advance Directives No Advanced Directives Records Found Advance Directive Response Recorded Date/ Time Advance Directives Yes July 2:03pm Living Will Yes December 19, 2021 11:22am Power of Orientation & Mobility Specialist Yes December 19 11:22am Name of Medical Power of Orientation & Mobility Specialist on file, ANDREW Smith, December 19, 2021 11:22am Advance Directive Response Recorded Date/ Time Advance Directives Yes July 1:03pm Living Will Yes December 19, 2021 10:22am Power of Orientation & Mobility Specialist Yes December 19 10:22am Advance Directive Response Recorded Date/ Time Advance Directives Yes July 2:03pm Living Will Yes December 19, 2021 11:22am Power of Orientation & Mobility Specialist Yes December 19 11:22am Chief Complaint and Reason for Visit Chief Complaint CYSTO, BLADDER BX, F ULGURATION Reason for Visit Bladder neoplasm of uncertain malignant potential Urge incontinence Urinary frequency Chief Complaint DYSPHAGIA SCREENING Chief Complaint SCREENING WHEEZING Chief Complaint SCREENING POST JOVANA Additional Source Comments Source Comments (unrecognize d section and content) In the event this informatio n is protected by the Federal Confidentiality of Alcohol and Drug Abuse Patient Records regulations: The Federal rules restrict any use of the information to criminally investigate or prosecute any alcohol or drug abuse patient.[facility] Reason for Visit (unrecogniz ed section and content) Reason Onset Date Comments Referral Information 02/26/2020 Telephone Encounter - Katherine Kapadia - 02/26/2020 8:59 AM EDT Miscellaneous Notes (unrecog nized section and content) Called patient to schedule appointment with Dr. Funez per referral from Dr. Dalton Weber DX stress incontinence, s/p sling and failed on medications Katherine Cullen documented in this encounter INFORMATION SOURCE (unrecogn ized section and content) DATE CREATED AUTHOR 02/26/2020 [facility] DATE CREATED AUTHOR 'S ORGANIZ ATION 02/15/2025 [place] Replaced by [facility] Care Teams (unrecognized sec tion and content) Team Status: Active Member Role Status Dates Dr. Pernell Zavala MD Family Provider Active Dr. Pernell Zavala MD Primary Care Provider Active Team Status: Inactive Member Role Status Dates Dr. Pernell Zavala MD Primary Care Provi christophe, Attending Provider, Referring Provider Active Team Status: Inactive Member Role Status Dates Dr. Pernell Zavala MD Primary Care Provider, Attending Provider Active Team Status: Inactive Member Role Status Dates Dr. Pernell Zavala MD Primary Care Provider Active Dr. Ibrahima Frederick MD Attending Provider, Referri ng Provider Active Goals (unrecognized section and content) Goals may be documented in a n alternate sectionGoals may be documented in an alternate sectionGoals may be documented in an alternate sectionGoals may be documented in an alternate sectionGoals may be documented in an alternate section FOR RECORDS PERTAINING TO PATIENTS WHO ARE [...] BE BASED ON THE PRIMARY CLINICAL RECORDS. [facility]. provides no warranty or guarantee of the accuracy or completeness of information in this document.
== END | disposition home or self-care (01) ==
LOC: MFPLAB 10:39
PROVIDERS: PCP Family Medicine; Referring Provider Family Medicine; Visit Provider Family Medicine
DX: R73.9 Hyperglycemia, unspecified (principal)
CPT/HCPCS: 36415; 80048